=== PATIENT | female | born 1965 | race Caucasian/White ===

== ENCOUNTER 2021-01-22 08:48 | Day surgery (SDC) | payer OTHER ==
[2021-01-22] MEDS ORDERED: CEFAZOLIN SODIUM 1 GM/VIAL ONE (09:05)
[2021-01-22] MEDS ORDERED: GENTAMICIN SULF 80 MG/2ML INJ ONE (09:05)
[2021-01-22] MEDS ORDERED: NS 0.9% VIAL 40 ML ONE (09:05)
[2021-01-22] MEDS ORDERED: LIDOCAINE 1% W/EPI 1:100,000 MDV 20 ML VIAL ONE (09:06)
[2021-01-22] MEDS ORDERED: Mastisol Adhesive Liq ONE (09:06)
[2021-01-22] MEDS ORDERED: Ringers Lactate 1,000 ML IV ONE ×3 (09:06→09:34)
[2021-01-22] MEDS ORDERED: BACITRACIN 50000 UNIT VIAL ONE (09:06)
[2021-01-22 09:14] LABS: Urine Appearance CLEAR (Clear); Urine Bilirubin NEGATIVE (Negative); Urine Blood TRACE (Negative); Urine Color DK YELLOW (Yellow); Urine Glucose NEGATIVE (Negative); Urine Protein NEGATIVE (Negative); Urine Specific Gravity >=1.030 (1.005-1.030); Urine Urobilinogen 0.2 mg/dL (0.2-1.0)
[2021-01-22 09:29] LABS: Urine Microscopic Reflex ORDER UMIC
[2021-01-22] MEDS ORDERED: CEFAZOLIN/SWI 1gm 1 GM/10 ML SYR ONE (09:34)
[2021-01-22 09:45] LABS: Absolute Lymphocytes (CBC) 2.1 K/uL (0.7-4.9); Basophils % 1.1 % (0-1.3); Hematocrit 40.4 % (36.0-45.0); Lymphocytes % 31.3 % (15.3-44.8); MPV 9.7 fL (7.6-11.3); RBC Red Blood Cell Count 4.33 M/uL (3.86-4.86)
--- NOTE | 2021-01-22 10:15 | RAD REPORT ---
EXAM DESCRIPTION: RAD - Chest Single View - 01/22/2021 8:31 am CLINICAL HISTORY: PRE-OP Chest pain. COMPARISON: No comparisons FINDINGS: Portable technique limits examination quality. The lungs are grossly clear. The heart is upper limit of normal in size. No displaced fractures. IMPRESSION: No acute intrathoracic process suspected.
[2021-01-22 10:16] LABS: Urine Bacteria >50 /HPF (<20); Urine Mucus MOD /HPF (NONE SEEN)
[2021-01-22] MEDS ORDERED: SCOPOLAMINE HYDROBROMIDE PATCH TD ONE ×2 (11:10→11:33)
[2021-01-22] MEDS ORDERED: propofoL 200 MG/20 ML VIAL IV ONE (11:27)
[2021-01-22] MEDS ORDERED: GLYCOPYRROLATE 0.2 MG/ML SYR ONE (11:28)
[2021-01-22] MEDS ORDERED: FENTANYL CITR 250 MCG/5 ML ONE (11:28)
[2021-01-22] MEDS ORDERED: LIDOCAINE 2% MPF 5 ML VIAL ONE (11:28)
[2021-01-22] MEDS ORDERED: MIDAZOLAM HCL 2 MG/2 ML INJ ONE (11:28)
[2021-01-22] MEDS ORDERED: ONDANSETRON 4 MG/2 ML VIAL ONE ×2 (11:29→18:13)
[2021-01-22] MEDS ORDERED: ROCURONIUM 50 MG/5 ML VIAL IV ONE ×2 (11:29→12:49)
[2021-01-22] MEDS ORDERED: dexAMETHasone 10 MG/ML VIAL ONE (11:45)
[2021-01-22] MEDS ORDERED: EPHEDRINE SULF 50 MG/ML VIAL ONE (12:13)
[2021-01-22] MEDS ORDERED: FENTANYL CITR 100 MCG/2 ML ONE (13:12)
[2021-01-22] MEDS ORDERED: KETOROLAC 30 MG/ML INJ ONE (14:45)
[2021-01-22] MEDS ORDERED: MORPHINE 10 MG/ML VIAL ONE (14:45)
[2021-01-22] MEDS ORDERED: CODEINE 30MG/APAP 300MG TAB ONE (17:48)
[2021-01-22 18:24] VITALS: BP 105/74; TEMP 97; O2SAT 98
--- NOTE | 2021-01-22 19:57 | OP ---
Surgeon: Gilmer Gillis MD Preoperative Diagnosis: Breast descent. Postoperative Diagnosis: Breast descent. Procedure Performed: Breast lift. Anesthesia: General. Procedure In Detail: After the satisfactory induction of general anesthesia, chest was prepped with DuraPrep and dry sterile drapes applied in the usual manner. A 5 cm template was used to outline the right and left areolas. Then a transverse curvilinear incisions were made with scalpel and the skin was de-epithelialized with a dermabrader and tenotomy scissors. Then a transverse incision was made . Dissection was proceeded cephalad towards the clavicle, sternum, and anterior axillary line on the right side. Then the inferior incision was made. The tissue was then formed into a cone with 2-0 P DS suture after excess lateral tissue was excised with a scalpel. After cone was formed, straps were elevated at 12 o'clock, 1:30 and 3 o'clock position. The straps were then woven in and out of the p ectoralis muscle back to the base of cone back to the pectoralis muscle back to the base of the cone and tied to themselves with 2-0 PDS sutures. Then done for the 12 o'clock, 1:30 straps. The 3 o'fiona ck strap was sewn over the sternum at 3 o'clock position with 2-0 Ethibond. Left side was done in a mirror-image manner. We then returned to the right side. Irrigated the wound with antibiotic soluti on. Brought the 10 SHARAD out of the axilla, sewn in place with 2-0 silk, closed the wound with 3-0 Vicr yl and then 3-0 PDS running subcuticular, tied from medial lateral, lateral to medial, tied in the ve rtical meridian of the breast. Left side was done in identical manner and then the patient was sat u p. Site for new nipple-areolar complex was marked out. Tissue was cored out with a 45 template and then closed in layers with 4-0 PDS interrupted follow up by 4-0 PDS running subcuticular. Dressings consisted of tincture of benzoin, Steri-Strips followed by Esmarch, fluffs, and Jordy wrap. The patient tolerated procedure well and ret urned to Recovery. PIPO/KATHY Voice ID: [id number] Report ID: [id number]
== END 2021-01-22 18:13 | disposition home or self-care (01) ==
LOC: OR 08:48
PROVIDERS: ATTEND Specialist
PROC: 0HSV0ZZ Reposition Bilateral Breast, Open Approach (ICD-10-PCS; principal; 2021-01-22 09:00)
DX: N64.81 Ptosis of breast (principal); Z20.822 Contact with and (suspected) exposure to COVID-19
CPT/HCPCS: 93005; 87088; 85025; 87086; 36415; 88305; 71045; 19316; J2704; J1580; J2250; J3010 ×2; J1100; J0690 ×2; J7120 ×3; J2405 ×2; 81003; 81015